=== PATIENT | male | born 1960 | race Caucasian/White ===

== ENCOUNTER 2024-10-05 18:46 | Inpatient (IN) | payer BC, OTHER ==
--- NOTE | 2024-10-05 19:45 | ED ---
Animal Bite HPI - General Chief Complaint: Animal Bite Stated Complaint: Cat bite right hand Time Seen by Provider: 10/05/24 19:13 Source: patient, RN notes reviewed Mode of arrival: ambulatory Limitations: no limitations - History of Present Illness Initial Comments: This is a 63-year-old male who presents to the emergency department for a cat bite to the right hand. Patient states that he was bitten by a cat on his right hand 3 days ago. This was his own cat. He aggravated it when he was trying to grab it and bring it inside. He has since had increasing redness, pain, and swelling going up the arm. Pain is decently controlled unless he tries to move his arm. Denies any fevers or chills associated with this. The cat is up-to-date on its immunizations. Unsure when his tetanus vaccine was. Complaint: animal bite - Related Data Allergies Allergy/AdvReac Type Severity Reaction Status Date / Time No Known Allergies Allergy Verified 10/05/24 19:11 Review of Systems ROS Statement: Those systems with pertinent positive or pertinent negative responses have been documented in the HPI. ROS Other: All systems not noted in ROS Statement are negative. Past Medical History Past Medical History: No Reported History History of Any Multi-Drug Resistant Organisms: None Reported Past Surgical History: Back Surgery, Hernia Repair, Orthopedic Surgery Past Psychological History: No Psychological Hx Reported Smoking Status: Current every day smoker Past Alcohol Use History: Rare Past Drug Use History: Marijuana General Exam Limitations: no limitations General appearance: alert, in no apparent distress Head exam: Present: atraumatic, normocephalic, normal inspection Respiratory exam: Present: normal lung sounds bilaterally. Absent: respiratory distress, wheezes, rales, rhonchi, stridor Cardiovascular Exam: Present: regular rate, normal rhythm Extremities exam: Present: other (Puncture wound to the right hand with active drainage and surrounding erythema and swelling. Erythema, induration, and swelling tracks up to the olecranon. Full range of motion. 2+ radial pulses) Neurological exam: Present: alert, oriented X3, CN II-XII intact Psychiatric exam: Present: normal affect, normal mood Course Vital Signs 10/05/24 10/05/24 19:07 21:55 Temperature 98 F 98.2 F Pulse Rate 89 76 Respiratory 20 16 Rate Blood Pressure 154/81 O2 Sat by Pulse 97 98 Oximetry Medical Decision Making - Medical Decision Making This is a 63-year-old male who presents to the emergency department for a cat bite to the right hand. Was pt. sent in by a medical professional or institution? @ -No Did you speak to anyone other than the patient for history? @ -No Did you review nursing and triage notes? @ -Yes, and I agree, it is accurate with regards to the patient's symptoms. Were old charts reviewed? @ -No Differential Diagnosis? @ -Cellulitis, abscess, abrasion, burn, this is not meant to be an all- inclusive list. EKG interpreted by me (3pts min.)? @ -Not obtained X-rays interpreted by me (1pt min.)? @ -X-ray of the right hand and wrist obtained. My interpretation identifies no acute fractures. CT interpreted by me (1pt min.)? @ -Not obtained U/S interpreted by me (1pt. min.)? @ -Not obtained What testing was considered but not performed? (CT, X-rays, U/S, labs)? Why? @ -None What meds were considered but not given? Why? @ -None Did you discuss the management of the patient with other professionals? @ -Yes, Dr. Angeles, who accepts the patient for admission Did you reconcile home meds? @ -No Was smoking cessation discussed for >3mins.? @ -No Was critical care preformed (if so, how long)? @ -No Were there social determinants of health that impacted care today? How? (Homelessness, low income, unemployed, alcoholism, drug addiction, transportation, low edu. Level, literacy, decrease access to med. care, residential, rehab)? @ -No Was there de-escalation of care discussed even if they declined? (Discuss DNR or withdrawal of care, Hospice)? @ -No What co-morbidities impacted this encounter? (DM, HTN, Smoking, COPD, CAD, Cancer, CVA, Hep., AIDS, mental health diagnosis, sleep apnea, morbid obesity)? @ -None Was patient admitted / discharged? @ -Admitted. Lab work demonstrates leukocytosis with a white blood cell count of 14.6. CRP elevated at 5.7. X-ray of the right hand and wrist obtained revealing soft tissue swelling without other acute findings. He had fairly extensive erythema tracking from the hand wound and going up the arm. Blood and wound cultures obtained and he was started on Unasyn. Tetanus vaccine updated as well. Given how extensive the infection had become, advised admission for IV antibiotics. Patient admitted to medicine for cat bite to the right hand and right upper extremity cellulitis. Consult placed for infectious disease. Will keep patient n.p.o. after midnight in the event he needs to be taken to the OR for washout of the wound. Case discussed with ED attending Dr. Zurita. Undiagnosed new problem with uncertain prognosis? @ -None Drug Therapy requiring intensive monitoring for toxicity (Heparin, Nitro, Insulin, Cardizem)? @ -None Were any procedures done? @ -None Diagnosis/symptom? @ -Cat bite of right hand, right upper extremity cellulitis Acute, or Chronic, or Acute on Chronic? @ -Acute Uncomplicated (without systemic symptoms) or Complicated (systemic symptoms)? @ -Uncomplicated Side effects of treatment? @ -None Exacerbation, Progression, or Severe Exacerbation] @ -Not applicable Poses a threat to life or bodily function? @ -Yes, can lead to worsening infection - Lab Data Result diagrams: 10/05/24 20:03 10/05/24 20:03 Lab Results 10/05/24 10/05/24 10/05/24 Range/Units 20:03 20:03 20:03 WBC 14.60 H (4.50-10.00) 10*3/uL RBC 5.14 (4.40-5.60) 10*6/uL Hgb 14.5 (13.0-17.0) g/dL Hct 43.2 (39.6-50.0) % MCV 84.0 (80.0-97.0) fL MCH 28.2 (27.0-32.0) pg MCHC 33.6 (32.0-37.0) g/dL Plt Count 289 (140-440) 10*3/uL MPV 10.1 (9.5-12.2) fL Immature Gran % (Auto) 0.3 % Neutrophils % 70.6 % Lymphocytes % 19.9 % Monocytes % 8.2 % Eosinophils % 0.7 % Basophils % 0.3 % Immature Gran # 0.04 (0.00-0.04) 10*3/uL Neutrophils # 10.32 H (1.80-7.70) 10*3/uL Lymphocytes # 2.91 (0.90-5.00) 10*3/uL Monocytes # 1.19 H (0.20-1.00) 10*3/uL Eosinophils # 0.10 (0.04-0.35) 10*3/uL Basophils # 0.04 (0.00-0.10) 10*3/uL Sodium 139 (137-145) mmol/L Potassium 4.8 (3.5-5.1) mmol/L Chloride 105 (98-107) mmol/L Carbon Dioxide 22 (22-30) mmol/L Anion Gap 12 mmol/L BUN 12 (9-20) mg/dL Creatinine 0.51 L (0.66-1.25) mg/dL Est GFR (CKD-EPI)AfAm >90 (>60 ml/min/1.73 sqM) Est GFR (CKD-EPI)NonAf >90 (>60 ml/min/1.73 sqM) Glucose 106 H (74-99) mg/dL Plasma Lactic Acid Luis 1.0 (0.7-2.0) mmol/L Calcium 9.0 (8.4-10.2) mg/dL Total Bilirubin 0.9 (0.2-1.3) mg/dL AST 42 (17-59) U/L ALT 36 (4-49) U/L Alkaline Phosphatase 77 (38-126) U/L C-Reactive Protein 5.7 H (<1.0) mg/dL Total Protein 7.3 (6.3-8.2) g/dL Albumin 4.1 (3.5-5.0) g/dL - Radiology Data Radiology results: report reviewed, image reviewed Disposition Clinical Impression: Cat bite, Cellulitis of right upper extremity Disposition: ADMITTED IP TO THIS HOSP
[2024-10-05] MEDS: SODIUM CHLORIDE 0.9% 1,000 ML IV SCH (20:08)
[2024-10-05] MEDS: AMPICILLIN-SULBACTAM 3 GM in SODIUM CHLORIDE 0.9% 100 ML IVPB SCH (20:08)
[2024-10-05] MEDS: DIPH,PERTUS(ACELL)TETVAC-LF 0.5 ML VIAL IM ONE (20:09)
--- NOTE | 2024-10-05 20:14 | XR ---
EXAMINATION TYPE: XR wrist complete RT, XR hand complete RT DATE OF EXAM: 10/05/2024 8:01 PM COMPARISON: None CLINICAL INDICATION: Male, 63 years old with history of Cat bite; PHH, pain TECHNIQUE: XR wrist complete RT, XR hand complete RT; examined in the Frontal, navicular, lateral, a nd oblique. FINDINGS: No acute osseous pathology, joint dislocation, or joint effusion. Mild soft tissue swelling is seen throughout the arm. No evidence for osseous erosion. Multifocal degeneration changes through out the visualized joints worse in the carpal metacarpal joint of the first digit. No radiopaque fore ign body. IMPRESSION: Mild soft tissue swelling without evidence for radiopaque foreign body. [facility], , 10/05/2024 8:12 PM
[2024-10-05 20:19] LABS: Basophils # (A) 0.04 10*3/uL (0.00-0.10); Basophils % (A) 0.3 %; Eosinophils # (A) 0.10 10*3/uL (0.04-0.35); Eosinophils % (A) 0.7 %; HCT 43.2 % (39.6-50.0); HGB 14.5 g/dL (13.0-17.0); Lymphocytes # (A) 2.91 10*3/uL (0.90-5.00); Lymphocytes % (A) 19.9 %; MCH 28.2 pg (27.0-32.0); MCHC 33.6 g/dL (32.0-37.0); MCV 84.0 fL (80.0-97.0); Monocytes # (A) 1.19 10*3/uL (0.20-1.00); Monocytes % (A) 8.2 %; Neutrophils # (A) 10.32 10*3/uL (1.80-7.70); Neutrophils % (A) 70.6 %; Platelet Count 289 10*3/uL (140-440); RBC 5.14 10*6/uL (4.40-5.60); RDW 14.1 % (11.5-14.5); WBC 14.60 10*3/uL (4.50-10.00)
[2024-10-05 20:43] LABS: ALT 36 U/L (4-49); African American GFR (CKD) >90 (>60 ml/min/1.73 sqM); Albumin 4.1 g/dL (3.5-5.0); Anion Gap 12 mmol/L; Blood Urea Nitrogen 12 mg/dL (9-20); Calcium 9.0 mg/dL (8.4-10.2); Carbon Dioxide 22 mmol/L (22-30); Chloride 105 mmol/L (98-107); Glucose 106 mg/dL (74-99); Non-African American GFR(CKD) >90 (>60 ml/min/1.73 sqM); Sodium 139 mmol/L (137-145); Total Protein 7.3 g/dL (6.3-8.2)
[2024-10-05 20:46] LABS: AST 42 U/L (17-59); Alkaline Phosphatase 77 U/L (38-126); Potassium 4.8 mmol/L (3.5-5.1)
[2024-10-05] MEDS ORDERED: HYDROcodone/APAP 5-325MG 1 EACH TAB PO PRN (21:08)
[2024-10-05] MEDS ORDERED: ONDANSETRON 4 MG/2 ML VIAL IVP PRN (21:08)
[2024-10-05] MEDS ORDERED: ACETAMINOPHEN TAB 325 MG TAB PO PRN (21:08)
[2024-10-05] MEDS ORDERED: MORPHINE SULFATE 4 MG/ML SYRINGE IV PRN (21:08)
[2024-10-05] MEDS ORDERED: NALOXONE 0.4 MG/ML 1 ML VIAL IV PRN (21:08)
[2024-10-05] MEDS: KETOROLAC 15 MG/ML 1 ML VIAL IVP PRN (23:21)
[2024-10-06] MEDS: PANTOPRAZOLE 40 MG/10 ML VIAL IV SCH (08:31)
--- NOTE | 2024-10-06 13:50 | P.CNOR ---
History of Present Illness - HPI Consult date: 10/06/24 Consult reason: other (Cat bite right hand) History of present illness: Patient is a 63-year-old male who presented to [facility] on 10/05/2024 for further evaluation of a injury to his right hand/wrist area. Patient states about a week ago his cat bit him on the hand when he was trying to place the cat back inside. Patient initially cleaned the wound well at home, he also had taken a few different oral antibiotics. As of 10/05/2024, the swelling and discomfort along with streaking redness had worsened which prompted him to come to the hospital. Multiple lab tests were done to the patient upon arrival to [facility] emergency room, he was then admitted under internal medicine. Our orthopedic team was also consulted on this case, he is also being followed by infectious disease. Patient was evaluated today at bedside, he is resting comfortably in his hospital chair. Apparently infectious disease doctor had been by today and taken cultures from one of the wounds present on the dorsal aspect of the right hand. Patient denies any recent fevers at this time. He feels that the swelling and redness is much improved after beginning the IV antibiotics yesterday and continuing them today. Patient denies any numbness or tingling to the hand. He denies any loss of sensation. He denies any elbow or shoulder pain at this time. He denies any previous surgery to the right hand or wrist. Review of Systems Constitutional: Reports as per HPI Past Medical History Past Medical History: No Reported History History of Any Multi-Drug Resistant Organisms: None Reported Past Surgical History: Back Surgery, Hernia Repair, Orthopedic Surgery Past Anesthesia/Blood Transfusion Reactions: Previous Problems w/ Anesthesia Additional Past Anesthesia/Blood Transfusion Reaction / Comm: Pt states when coming out from anesthesia from the back surgery it felt like he couldn't breathe but it resolved. Past Psychological History: No Psychological Hx Reported Smoking Status: Current every day smoker Past Alcohol Use History: Rare Past Drug Use History: Marijuana Medications and Allergies Home Medications Medication Instructions Recorded Confirmed Type No Known Home Medications 10/06/24 10/06/24 History Allergies Allergy/AdvReac Type Severity Reaction Status Date / Time No Known Allergies Allergy Verified 10/06/24 09:50 Physical Examination Right upper extremity: There are 3-4 separate puncture wounds to the right hand/wrist area, the 2 open areas are on the dorsal aspect near the base of the thumb and over the radiocarpal joint. He has a healed scab more near the ulnar radial joint on the dorsal side, on the palmar side he has a small scab present at the radiocarpal joint. There is some minor erythema in that area that does trend up into the forearm, this is very mild. There are no obvious areas of fluctuance I am able to appreciate. There is no active drainage appreciated. There is no excessive pain with palpation throughout the hand and wrist. Patient can make a full fist with no discomfort, he can wiggle all the fingers with no difficulty. His sensation to light touch is intact throughout the extremity. His radial and ulnar pulse are 2+ Results - Labs Labs: Abnormal Lab Results - Last 24 Hours (Table) 10/05/24 10/05/24 Range/Units 20:03 20:03 WBC 14.60 H (4.50-10.00) 10*3/uL Neutrophils # 10.32 H (1.80-7.70) 10*3/uL Monocytes # 1.19 H (0.20-1.00) 10*3/uL Creatinine 0.51 L (0.66-1.25) mg/dL Glucose 106 H (74-99) mg/dL C-Reactive Protein 5.7 H (<1.0) mg/dL Microbiology - Last 24 Hours (Table) 10/05/24 22:15 Gram Stain - Preliminary Hand - Right H & H 10/05/24 Range/Units 20:03 Hgb 14.5 (13.0-17.0) g/dL Hct 43.2 (39.6-50.0) % Result Diagrams: 10/05/24 20:03 10/05/24 20:03 - Diagnostic results Wrist/Hand x-ray: report reviewed, image reviewed (Multiple views were reviewed for the right wrist/hand along with reports. No acute fractures or dislocations were noted. No obvious foreign bodies were noted. Severe CMC joint arthritis is noted in that hand) Assessment and Plan Assessment: Cat bite right hand Multiple puncture wounds right hand/wrist Right hand CMC joint osteoarthritis Medical comorbidities Plan: I was able to review the case, include physical exam findings and imaging studies my attending Dr. Jenkins. No emergent orthopedic surgical intervention is recommended at this time Recommended conservative measures, this to include Hibiclens soaks twice a day, continuation of IV antibiotics with hopeful transition to oral antibiotics. Also recommending icing and elevating along with the use of an oral anti-inflammatory Patient is very adamant about being discharged today, I advised that he remain in hospital at least to have 24 hours of IV antibiotics GI/DVT prophylaxis per primary medical service Other medical specialty recommendations appreciated Orthopedically patient remained stable, we are recommending follow-up with a orthopedic hand surgeon to continue to monitor this issue in the outpatient setting Time with Patient: Less than 30
--- NOTE | 2024-10-06 14:08 | HP ---
HISTORY AND PHYSICAL CHIEF COMPLAINT: Cat bite. HISTORY OF PRESENT ILLNESS: This 63-year-old gentleman with a past medical history of no significant medical issues, had a cat bite to the right hand a few days ago. The patient has taken some ampicillin, because of the increasing pain and swelling. The patient came to [facility], admitted for further evaluation and treatment. X-rays showed soft tissue swelling. PAST MEDICAL HISTORY: History of back surgery, hernia repair, rest of the history and chart are also reviewed. HOME MEDICATIONS: None. ALLERGIES: None. FAMILY HISTORY: No history of heart disease or strokes in the family. SOCIAL HISTORY: Smoking THC. REVIEW OF SYSTEMS: A 14-point review of systems negative except as mentioned earlier. PHYSICAL EXAMINATION: VITAL SIGNS: Pulse is 73, blood pressure is 148/84, and respirations 17. HEENT: Conjunctivae normal. NECK: No JVD. CARDIOVASCULAR: S1, S2. RESPIRATIONS: Breath sounds diminished at the bases. ABDOMEN: Soft, nontender. LEGS: No edema. NERVOUS SYSTEM: Nonfocal. SKIN: Examination of right arm some painful tender areas with a cat bite olivares mainly in the distal right forearm. Some swelling present. LABORATORY DATA: WBC 14.6. ASSESSMENT: 1. Right hand cat bite with severe cellulitis with failure of outpatient treatment. 2. Severe pain. 3. History of back surgery. 4. History of hernia surgery. 5. Degenerative joint disease. 6. History of nicotine dependence. RECOMMENDATION: This is a 63-year-old gentleman presented with complex medical issues. We will monitor the patient closely. I would recommend broad-spectrum IV antibiotics, cultures. Infectious Disease and Orthopedic consultations, pain management. Guarded prognosis. Further recommendations to follow. See orders for details. MMODL / IJN: [id number] / MTDD
--- NOTE | 2024-10-06 14:31 | P.CONS ---
History of Present Illness - Reason for Consult Consult date: 10/06/24 - Chief Complaint animal bite - History of Present Illness 63-year-old male with no known medical history, current daily smoker here for a cat bite to the right hand. Patient reported that on admission, he was bitten by his pet cat on the right hand 3 days ago. He has reported worsening redness, pain and swelling that has traveled up to his forearm. Reported that he has ROM limitation due to swelling with some tingling sensation of the finger. Denied fever, chills, nausea, vomiting, joint pains. Cat is up-to-date on his immunizations. WBC 14.6, hemoglobin 14.5, creatinine 0.5, CRP 5.7. Hand and wrist x-ray showed mild soft tissue swelling with no osseous pathology or joint pathology. Review of Systems All other review of systems negative. All systems: negative Past Medical History Past Medical History: No Reported History History of Any Multi-Drug Resistant Organisms: None Reported Past Surgical History: Back Surgery, Hernia Repair, Orthopedic Surgery Past Anesthesia/Blood Transfusion Reactions: Previous Problems w/ Anesthesia Additional Past Anesthesia/Blood Transfusion Reaction / Comm: Pt states when coming out from anesthesia from the back surgery it felt like he couldn't breat he but it resolved. Past Psychological History: No Psychological Hx Reported Smoking Status: Current every day smoker Past Alcohol Use History: Rare Past Drug Use History: Marijuana Medications and Allergies Home Medications Medication Instructions Recorded Confirmed Type Amoxic-Pot Clav 875-125Mg 1 tab PO Q12HR 10 Days #20 tab 10/06/24 Rx [Augmentin 875-125] Doxycycline [Vibramycin] 100 mg PO BID 7 Days #14 capsule 10/07/24 Rx Allergies Allergy/AdvReac Type Severity Reaction Status Date / Time No Known Allergies Allergy Verified 10/06/24 09:50 Physical Exam Vitals: Vital Signs Temp Pulse Pulse Resp BP BP Pulse Ox 10/06/24 07:27 97.6 F 73 17 140/84 97 10/06/24 01:54 97.3 F L 77 16 142/81 97 10/06/24 01:37 97.6 F 71 16 123/80 97 10/05/24 21:55 98.2 F 76 16 154/81 98 10/05/24 19:07 98 F 89 20 97 Intake and Output 10/05/24 10/06/24 10/06/24 22:59 06:59 14:59 Other: Voiding Method Toilet Weight 81.647 kg 81.647 kg physical examination: Vital signs reviewed General: non toxic, no distress, appears at stated age Head: atraumatic, normocephalic, symmetric Mouth: no lip lesion, mucus membranes moist Cardiovascular: S1S2 reg, no murmur Lungs: CTA bilateral, no accessory muscle use Abdominal: soft, nondistended, no guarding Ext: muscle strength 5 out of 5 in all 4 extremities grossly, no gross muscle atrophy, no contractures, positive dorsalis pedis pulse bilateral, 2 puncture wounds noted the right medial aspect of wrist, swelling noted of the right wrist up to the fingers with slight erythema no discharge or bleeding noted Neuro: no gross focal neuro deficits Psych: Alert and oriented x3, appropriate affect and mood Results CBC & Chem 7: 10/07/24 06:18 10/07/24 06:18 Labs: Abnormal Lab Results - Last 24 Hours (Table) 10/05/24 10/05/24 Range/Units 20:03 20:03 WBC 14.60 H (4.50-10.00) 10*3/uL Neutrophils # 10.32 H (1.80-7.70) 10*3/uL Monocytes # 1.19 H (0.20-1.00) 10*3/uL Creatinine 0.51 L (0.66-1.25) mg/dL Glucose 106 H (74-99) mg/dL C-Reactive Protein 5.7 H (<1.0) mg/dL Assessment and Plan (1) Cellulitis of right upper extremity Current Visit: Yes Status: Acute Code(s): L03.113 - CELLULITIS OF RIGHT UPPER LIMB SNOMED Code(s): 67858729277036189 (2) Cat bite Current Visit: Yes Status: Acute Code(s): W55.01XA - BITTEN BY CAT, INITIAL ENCOUNTER SNOMED Code(s): 345547800 Plan: -Patient as cat bite on right wrist with associated swelling and erythema concerning for cellulitis. Hand and wrist x-ray showed mild soft tissue swelling without osseous pathology or joint pathology - Wound cultures and blood cultures ordered and pending. - Continue with Unasyn IVPB every 6 hours. Will modify management based on p atient's clinical condition and results of culture Thank you for this consult. Will follow patient along with you Teressa Gomez MD PGY-2, Internal Medicine Infectious disease service Patient was personally seen and examined care discussed in detail with the resident physician documentation reviewed and agree, patient did have a right hand wrist area cat bite cellulitis there was area of purulence which was cultured patient has been insisting on going home however has been advised was to the hospital for IV antibiotic therapy for the inflammation/infection to improve before transition to oral antibiotic if the patient insist on going home today it will be AMA discussed with the TRANSFER CONTROLLER for admitting team Dictation was produced using [employer] dictation software. please excuse any grammatical, word or spelling errors. Time with Patient: Greater than 30
[2024-10-06 19:36] VITALS: RESP 16
[2024-10-07] MEDS: IBUPROFEN 400 MG TAB PO PRN (05:40)
[2024-10-07 10:20] LABS: Basophils # (A) 0.05 X 10*3/uL (0.00-0.10); Basophils % (A) 0.4 %; Eosinophils # (A) 0.26 X 10*3/uL (0.04-0.35); Eosinophils % (A) 2.1 %; HCT 39.0 % (39.6-50.0); HGB 12.4 g/dL (13.0-17.0); Immature Grans, Automated 0.40 %; Lymphocytes # (A) 2.74 X 10*3/uL (0.90-5.00); Lymphocytes % (A) 22.0 %; MCH 27.4 pg (27.0-32.0); MCHC 31.8 g/dL (32.0-37.0); MCV 86.3 FL (80.0-97.0); Monocytes # (A) 1.18 X 10*3/uL (0.20-1.00); Monocytes % (A) 9.5 %; NRBC Per 100 WBC 0 X 10*3/uL (0.00-0.01); Neutrophils # (A) 8.18 X 10*3/uL (1.80-7.70); Neutrophils % (A) 65.6 %; Platelet Count 268 X 10*3/uL (140-440); RBC 4.52 X 10*6/uL (4.40-5.60); RDW 14.6 % (11.5-14.5); WBC 12.46 X 10*3/uL (4.50-10.00)
[2024-10-07 10:51] LABS: Anion Gap 8.80 mmol/L (4.00-12.00); BUN/Creat Ratio 21.17 Ratio (12.00-20.00); Blood Urea Nitrogen 12.7 mg/dL (9.0-27.0); Calcium 8.0 mg/dL (8.7-10.3); Carbon Dioxide 22.2 mmol/L (21.6-31.8); Chloride 106 mmol/L (96-109); Glucose 116 mg/dL (70-110); Potassium 4.3 mmol/L (3.5-5.5); Sodium 137 mmol/L (135-145)
--- NOTE | 2024-10-07 16:44 | P.PN ---
Subjective Progress Note Date: 10/07/24 Reason for consult right hand cellulitis due to cat bite 63-year-old male with no known medical history, current daily smoker here for a cat bite to the right hand. Patient reported that on admission, he was bitten by his pet cat on the right hand 3 days ago. He has reported worsening redness, pain and swelling that has traveled up to his forearm. 10/07/2024 patient seen and examined at bedside. No acute events overnight. Denied new complaints or symptoms. Labs: WBC 12.4, creatinine 0.6 Objective - Vital Signs Vital signs: Vital Signs Temp 97.9 F 10/07/24 08:00 Pulse 64 10/07/24 08:00 Resp 16 10/07/24 08:00 BP 143/76 10/07/24 08:00 Pulse Ox 96 10/07/24 08:00 FiO2 Intake & Output 10/06/24 10/07/24 10/07/24 18:59 06:59 18:59 Intake Total 1620 Balance 1620 Intake: Oral 1620 Other: Voiding Method Toilet Toilet Toilet # Voids 2 1 # Bowel Movements 1 - Exam Physical examination: Vital signs reviewed General: non toxic, no distress, appears at stated age Head: atraumatic, normocephalic, symmetric Mouth: no lip lesion, mucus membranes moist Cardiovascular: S1S2 reg, no murmur Lungs: CTA bilateral, no accessory muscle use Abdominal: soft, nondistended, no guarding Ext: no gross muscle atrophy, no contractures, positive dorsalis pedis pulse bilateral, 2 puncture wounds noted the right medial aspect of wrist, improved swelling noted of the right wrist up to the fingers with slight erythema no discharge or bleeding noted Neuro: no gross focal neuro deficits Psych: Alert and oriented x3, appropriate affect and mood - Labs CBC & Chem 7: 10/08/24 06:54 10/08/24 06:54 Labs: Microbiology - Last 24 Hours (Table) 10/06/24 11:35 Gram Stain - Preliminary Hand - Right Wound Culture - Preliminary 10/05/24 20:03 Blood Culture Gram Stain - Preliminary Blood Blood Culture - Preliminary Molecular ID 10/05/24 22:15 Gram Stain - Preliminary Hand - Right Assessment and Plan (1) Cellulitis of right upper extremity Status: Acute Code(s): L03.113 - CELLULITIS OF RIGHT UPPER LIMB SNOMED Code(s): 42509970551393067 (2) Cat bite Status: Acute Code(s): W55.01XA - BITTEN BY CAT, INITIAL ENCOUNTER SNOMED Code(s): 026600881 Plan: -Patient as cat bite on right wrist with associated swelling and erythema concerning for cellulitis. Hand and wrist x-ray showed mild soft tissue swelling without osseous pathology or joint pathology - Wound cultures ordered and pending. Blood cultures showed positive for staph epi, mecA positive. Repeat blood cultures to confirm. -Ortho surgery was consulted. No emergent surgical intervention is recommended at this time. Recommended Hibiclens soaks twice a day. - Continue with Unasyn IVPB every 6 hours. Will modify management based on patient's clinical condition and results of culture Teressa Gomez MD PGY-2, Internal Medicine Infectious disease service Attestation:Patient was personally seen and examined care discussed in detail with the resident physician documentation reviewed and agree, patient right wrist pain and erythema has decreased in intensity no drainage we will keep the patient on Unasyn while inpatient while waiting for the culture to finalize Abdirahman Magallanes MD Dictation was produced using [employer] dictation software. please excuse any grammatical, word or spelling errors. Time with Patient: Less than 30
--- NOTE | 2024-10-07 22:51 | P.PN ---
Subjective Progress Note Date: 10/07/24 This is a pleasant 63-year-old male who was recently admitted with right hand swelling with cat bite with concerns of cellulitis being closely monitored with orthopedics and infectious disease following. Patient is currently maintained on Unasyn and is receiving Hibiclens soaks per orthopedics with no plans of surgical intervention at this time. Patient did have wound cultures obtained which are currently pending and blood culture from 10/05/2024 preliminary showing molecular ID and repeat blood cultures ordered and pending at this time. Patient is afebrile with no reports of chest pain or shortness of breath. White count is normal and will continue current management. Patient is tolerating d iet with no reported nausea or vomiting. Encouraged elevating right hand while at rest. Swelling has improved since yesterday. Review of systems: Constitutional: No reports of fatigue, fever, or chills Cardiovascular: No reports of chest pain or palpitations Respiratory: No reports of shortness of breath or cough GI: No reports of nausea, no reports of vomiting, no diarrhea : No reports of dysuria or retention Neurovascular: No reports of generalized weakness, reports improvement in right hand swelling All medications have been reviewed PHYSICAL EXAMINATION: GENERAL: The patient is alert and oriented x4, Well developed, well nourished. Thin built HEENT: Pupils are round and equally reacting to light. EOMI. no scleral icterus. No conjunctival pallor. Normocephalic, atraumatic. No pharyngeal erythema. No thyromegaly. CARDIOVASCULAR: S1 and S2 muffled PULMONARY: diminished breath sounds bilaterally with no wheezing or rhonchi noted. ABDOMEN: soft. Nontender on exam. non-distended, normoactive bowel sounds. No palpable organomegaly. MUSCULOSKELETAL: Right hand swelling is improved significantly from yesterday EXTREMITIES: No cyanosis, clubbing, or pedal edema. NEUROLOGICAL: Gross neurological examination did not reveal any focal deficits. SKIN: No rashes. Assessment: Right hand cat bite with severe cellulitis with failure of outpatient treatment Bacteremia possibly secondary to above with repeat cultures pending Severe pain of the right hand secondary to swelling, improved History of previous back and hernia surgery Degenerative joint disease History of nicotine dependence GI prophylaxis DVT prophylaxis Full code Plan: Recommend to continue with current medications and management with orthopedics and infectious disease following. Patient is continued on Hibiclens soaks per orthopedics with no plans of surgical intervention at this time. Infectious disease following and patient will continue on Unasyn at this time. Preliminary wound cultures negative thus far although blood cultures showing molecular ID and repeat blood cultures ordered and pending. Encouraged elevating right hand while at rest Encouraged increase activity as tolerated Follow-up on repeat labs Will await repeat cultures and finalized cultures to determine appropriate discharge antibiotics and clearance of bacteremia due to multiple complex medical issues, overall prognosis is guarded Patient would like to go home as he needs to take care of although is willing to stay at this time. The impression and plan of care has been dictated by Teressa Fiore, nurse practitioner as directed. Dr. Sawyer MD I have performed a history and examination and MDM of this patient, discussed the same with the dictator, and agree with the dictator's assessment and plan as written ,documented as a scribe. Based on total visit time, I have performed more than 50% of the visit. Any additional findings or plans will be noted. Objective - Vital Signs Vital signs: Vital Signs Temp 97.9 F 10/07/24 08:00 Pulse 64 10/07/24 08:00 Resp 16 10/07/24 08:00 BP 143/76 10/07/24 08:00 Pulse Ox 96 10/07/24 08:00 FiO2 Intake & Output 10/06/24 10/07/24 10/07/24 18:59 06:59 18:59 Intake Total 1620 Balance 1620 Intake: Oral 1620 Other: Voiding Method Toilet Toilet Toilet # Voids 2 1 # Bowel Movements 1 - Labs CBC & Chem 7: 10/07/24 06:18 10/07/24 06:18 Labs: Abnormal Lab Results - Last 24 Hours (Table) 10/07/24 10/07/24 Range/Units 06:18 06:18 WBC 12.46 H (4.50-10.00) X 10*3/uL Hgb 12.4 L (13.0-17.0) g/dL Hct 39.0 L (39.6-50.0) % MCHC 31.8 L (32.0-37.0) g/dL RDW 14.6 H (11.5-14.5) % Immature Gran # 0.05 H (0.00-0.04) X 10*3/uL Neutrophils # 8.18 H (1.80-7.70) X 10*3/uL Monocytes # 1.18 H (0.20-1.00) X 10*3/uL BUN/Creatinine Ratio 21.17 H (12.00-20.00) Ratio Glucose 116 H (70-110) mg/dL Calcium 8.0 L (8.7-10.3) mg/dL Microbiology - Last 24 Hours (Table) 10/05/24 22:15 Gram Stain - Preliminary Hand - Right Wound Culture - Preliminary 10/06/24 11:35 Gram Stain - Preliminary Hand - Right Wound Culture - Preliminary 10/05/24 20:03 Blood Culture Gram Stain - Preliminary Blood Blood Culture - Preliminary Molecular ID
[2024-10-08] MEDS: amLODIPine 10 MG TAB PO SCH (08:58)
[2024-10-08 11:01] LABS: Basophils # (A) 0.07 X 10*3/uL (0.00-0.10); Basophils % (A) 0.6 %; Eosinophils # (A) 0.32 X 10*3/uL (0.04-0.35); Eosinophils % (A) 2.6 %; HCT 41.9 % (39.6-50.0); HGB 13.3 g/dL (13.0-17.0); Immature Grans, Automated 0.30 %; Lymphocytes # (A) 3.24 X 10*3/uL (0.90-5.00); Lymphocytes % (A) 26.2 %; MCH 27.4 pg (27.0-32.0); MCHC 31.7 g/dL (32.0-37.0); MCV 86.4 FL (80.0-97.0); Monocytes # (A) 1.26 X 10*3/uL (0.20-1.00); Monocytes % (A) 10.2 %; NRBC Per 100 WBC 0 X 10*3/uL (0.00-0.01); Neutrophils # (A) 7.45 X 10*3/uL (1.80-7.70); Neutrophils % (A) 60.1 %; Platelet Count 306 X 10*3/uL (140-440); RBC 4.85 X 10*6/uL (4.40-5.60); RDW 14.5 % (11.5-14.5); WBC 12.38 X 10*3/uL (4.50-10.00)
[2024-10-08 11:26] LABS: ALT 23 U/L (10-49); AST 18 U/L (14-35); Albumin 3.3 g/dL (3.8-4.9); Albumin/Globulin Ratio 1.50 Ratio (1.60-3.17); Alkaline Phosphatase 64 U/L (41-126); Anion Gap 9.60 mmol/L (4.00-12.00); BUN/Creat Ratio 24.14 Ratio (12.00-20.00); Blood Urea Nitrogen 16.9 mg/dL (9.0-27.0); Calcium 8.4 mg/dL (8.7-10.3); Carbon Dioxide 23.4 mmol/L (21.6-31.8); Chloride 108 mmol/L (96-109); Globulin 2.2 g/dL (1.6-3.3); Glucose 113 mg/dL (70-110); Potassium 4.4 mmol/L (3.5-5.5); Sodium 141 mmol/L (135-145); Total Protein 5.5 g/dL (6.2-8.2)
--- NOTE | 2024-10-08 11:55 | P.PN ---
Subjective Progress Note Date: 10/08/24 Reason for consult right hand cellulitis due to cat bite 63-year-old male with no known medical history, current daily smoker here for a cat bite to the right hand. Patient reported that on admission, he was bitten by his pet cat on the right hand 3 days ago. He has reported worsening redness, pain and swelling that has traveled up to his forearm. 10/08/2024 patient seen and examined at bedside. No acute events overnight. Denied any new complaints or symptoms. Improved swelling and erythema per patient. Labs: WBC 9.3, creatinine 0.7 Objective - Vital Signs Vital signs: Vital Signs Temp 97.5 F L 10/08/24 08:00 Pulse 74 10/08/24 08:00 Resp 16 10/08/24 08:00 BP 163/102 10/08/24 08:00 Pulse Ox 97 10/08/24 08:00 FiO2 Intake & Output 10/07/24 10/08/24 10/08/24 18:59 06:59 18:59 Intake Total 360 590 Balance 360 590 Intake: Oral 360 590 Other: Voiding Method Toilet # Voids 4 2 - Exam Physical examination: Vital signs reviewed General: non toxic, no distress, appears at stated age Head: atraumatic, normocephalic, symmetric Mouth: no lip lesion, mucus membranes moist Cardiovascular: S1S2 reg, no murmur Lungs: CTA bilateral, no accessory muscle use Abdominal: soft, nondistended, no guarding Ext: no gross muscle atrophy, no contractures, positive dorsalis pedis pulse bilateral, 2 puncture wounds noted the right medial aspect of wrist, improved swelling noted of the right wrist up to the fingers with slight erythema no discharge or bleeding noted Neuro: no gross focal neuro deficits Psych: Alert and oriented x3, appropriate affect and mood - Labs CBC & Chem 7: 10/08/24 06:54 10/08/24 06:54 Labs: Abnormal Lab Results - Last 24 Hours (Table) 10/07/24 10/07/24 Range/Units 06:18 06:18 WBC 12.46 H (4.50-10.00) X 10*3/uL Hgb 12.4 L (13.0-17.0) g/dL Hct 39.0 L (39.6-50.0) % MCHC 31.8 L (32.0-37.0) g/dL RDW 14.6 H (11.5-14.5) % Immature Gran # 0.05 H (0.00-0.04) X 10*3/uL Neutrophils # 8.18 H (1.80-7.70) X 10*3/uL Monocytes # 1.18 H (0.20-1.00) X 10*3/uL BUN/Creatinine Ratio 21.17 H (12.00-20.00) Ratio Glucose 116 H (70-110) mg/dL Calcium 8.0 L (8.7-10.3) mg/dL Microbiology - Last 24 Hours (Table) 10/06/24 11:35 Gram Stain - Final Hand - Right Wound Culture - Final 10/05/24 22:15 Gram Stain - Preliminary Hand - Right Wound Culture - Preliminary 10/05/24 20:03 Blood Culture Gram Stain - Preliminary Blood Blood Culture - Preliminary Molecular ID Assessment and Plan (1) Cellulitis of right upper extremity Status: Acute Code(s): L03.113 - CELLULITIS OF RIGHT UPPER LIMB SNOMED Code(s): 24372034549885756 (2) Cat bite Status: Acute Code(s): W55.01XA - BITTEN BY CAT, INITIAL ENCOUNTER SNOMED Code(s): 365742053 Plan: -Patient as cat bite on right wrist with associated swelling and erythema concerning for cellulitis. Hand and wrist x-ray showed mild soft tissue swelling without osseous pathology or joint pathology - Wound cultures ordered and pending. Blood cultures showed positive for staph epi, mecA positive. Repeat blood cultures to confirm. -Ortho surgery was consulted. No emergent surgical intervention is recommended at this time. Recommended Hibiclens soaks twice a day. - Continue with Unasyn IVPB every 6 hours. May be sent home with oral Augmentin for 14 days Teressa Gomez MD PGY-2, Internal Medicine Infectious disease service Attestation:Patient care discussed in detail with the resident physician documentation reviewed and agree, patient has shown overall clinical improvement culture have been negative for resistant pathogen he will finish therapy with oral Augmentin on thousand close outpatient follow-up also discussed with the BODY RECALL INSTRUCTOR for admitting team Abdirahman Magallanes MD Dictation was produced using [employer] software. please excuse any grammatical, word or spelling errors. Time with Patient: Less than 30
[2024-10-08 13:42] VITALS: BP 135/84; PULSE 65; TEMP 98.1
== END 2024-10-08 15:45 | disposition home or self-care (01) | DRG 383 ==
LOC: EC 18:46 → 1SOBS 21:10 → OBSVTOIN 21:11 → 5NMEDONC 22:16
PROVIDERS: ADMIT Hospitalist; ATTEND Hospitalist
DX: L03.113 Cellulitis of right upper limb (principal); R78.81 Bacteremia; S61.451A Open bite of right hand, initial encounter; F17.200 Nicotine dependence, unspecified, uncomplicated; M19.90 Unspecified osteoarthritis, unspecified site; B95.7 Other staphylococcus as the cause of diseases classified elsewhere; W55.01XA Bitten by cat, initial encounter; Y92.009 Unspecified place in unspecified non-institutional (private) residence as the place of occurrence of the external cause
CPT/HCPCS: 36415; 80048; 80053; 83605; 85025; 86140; 87040; 87070; 87075; 87077; 87186; 87205; 90471; 90715; 96365; 96366; 96375; 99285